=== PATIENT | female | born 1960 | race Caucasian/White ===

== ENCOUNTER 2022-03-23 09:25 | Emergency (ER) | payer BC, OTHER ==
[2022-03-23 13:22] LABS: Absolute Lymphocytes (CBC) 2.5 K/uL (0.7-4.9); Hematocrit 40.4 % (36.0-45.0); Lymphocytes % 26.9 % (15.3-44.8); MCV 85.3 fL (80-100); MPV 7.4 fL (7.6-11.3); RBC Red Blood Cell Count 4.74 M/uL (3.86-4.86)
[2022-03-23 13:37] LABS: Albumin 3.1 g/dL (3.4-5.0); Bilirubin Total 0.6 mg/dL (0.2-1.0); Potassium 3.3 mmol/L (3.5-5.1)
--- NOTE | 2022-03-23 13:45 | EDPHYS ---
Physician Documentation [facility] Name: Tarsha Ponce Age: 61 yrs Sex: Female : 1960 Arrival Date: 03/23/2022 Time: 09:42 Bed 30 Private MD: ED Physician Alberta Bernard HPI: 03/23 09:58 This 61 yrs old Female presents to ER via Ambulatory with complaints of High Blood jmm Sugar, Vomiting. 09:58 This is a 61-year-old female with a history of factor V, hypertension, hypothyroidism, jmm the presents emerged department with elevated glucose levels. Patient states she was recently diagnosed with diabetes mellitus. Patient had told her PCP that she will occasionally vomit in the mornings which she states is normal for her. Also states having some shortness of breath which she also states is normal for her. But due to the new diagnosis was concerned the patient may be having a diabetic emergency. Patient denies chest pain vomiting or shortness of breath currently. Historical: - Allergies: 09:45 Percodan; ll1 - Home Meds: 14:16 amlodipine 10 mg tab 1 tab once daily [Active]; Folic Acid Oral [Active]; levothyroxine eh3 100 mcg tab 1 tab once daily [Active]; Xarelto 20 mg Oral tab 1 tab once daily [Active]; Zoloft 100 mg Oral tab 1 tab once daily [Active]; - PMHx: 09:45 DVT; factor V blood disorder; Hypertension; Hypothyroidism; Hypercholesterolemia; ll1 Diabetes mellitus; Pancreatitis; - PSHx: 09:45 tubes tied, partial hyst; Cholecystectomy; ll1 - Immunization history:: Client reports receiving the 1st dose of the Covid vaccine. - Social history:: Smoking status: Patient/guardian denies using tobacco, the patient reports quitting approximately 7 years ago. ROS: 09:58 Constitutional: Negative for fever, chills, and weight loss, Cardiovascular: Negative jmm for chest pain, palpitations, and edema, Respiratory: Negative for shortness of breath, cough, wheezing, and pleuritic chest pain. 09:58 All other systems are negative. Exam: 09:58 Constitutional: This is a well developed, well nourished patient who is awake, alert, jmm and in no acute distress. Head/Face: atraumatic. Eyes: EOMI, no conjunctival erythema appreciated ENT: Moist Mucus Membranes Neck: Trachea midline, Supple Chest/axilla: Normal chest wall appearance and motion. Cardiovascular: Regular rate and rhythm. No edema appreciated Respiratory: Normal respirations, no respiratory distress appreciated Abdomen/GI: Non distended Back: Normal ROM Skin: General appearance color normal MS/ Extremity: Moves all extremities, no obvious deformities appreciated, no edema noted to the lower extremities Neuro: Awake and alert Psych: Behavior is normal, Mood is normal, Patient is cooperative and pleasant Vital Signs: 09:43 BP 126 / 82; Pulse 80; Resp 17; Temp 97.6; Pulse Ox 98% ; Weight 81.65 kg; Height 5 ft. ll1 1 in. (154.94 cm); Pain 0/10; 13:04 BP 142 / 93; Pulse 75; Resp 18; Pulse Ox 100% on R/A; eh3 14:00 BP 129 / 90; Pulse 74; Resp 18; Pulse Ox 99% on R/A; eh3 09:43 Body Mass Index 34.01 (81.65 kg, 154.94 cm) 1 MDM: 10:33 Patient medically screened. [facility] 13:42 Data reviewed: vital signs, nurses notes. Counseling: I had a detailed discussion with akira the patient and/or guardian regarding: the historical points, exam findings, and any diagnostic results supporting the discharge/admit diagnosis, the need for outpatient follow up, to return to the emergency department if symptoms worsen or persist or if there are any questions or concerns that arise at home. 13:42 ED course: Patient's labs are unremarkable. Except for glucose. I do not currently [facility] suspect DKA. Patient vies follow-up PCP and otherwise given strict return precautions. Patient understood agrees to plan of care. 03/23 09:55 Order name: Glucose, Ancillary Testing; Complete Time: 10:07 EDMS 03/23 10:08 Order name: CBC with Diff; Complete Time: 13:26 [facility] 03/23 09:58 Order name: Finger Stick; Complete Time: 09:58 ll1 03/23 10:08 Order name: CMP; Complete Time: 13:39 [facility] 03/23 10:08 Order name: Lipase; Complete Time: 13:39 [facility] 03/23 10:08 Order name: IV Saline Lock; Complete Time: 10:16 [facility] 03/23 10:08 Order name: Labs collected and sent; Complete Time: 10:16 doretha Administered Medications: No medications were administered Disposition Summary: 03/23/22 13:44 Discharge Ordered Location: Home [facility] Condition: Stable jm Diagnosis - Hyperglycemia, unspecified jm Followup: [facility] - With: Private Physician - When: 2 - 3 days - Reason: Recheck today's complaints, Continuance of care, Re-evaluation by your physician Discharge Instructions: - Discharge Summary Sheet [facility] - Hyperglycemia [facility] Forms: - Medication Reconciliation Form [facility] - Thank You Letter [facility] - Antibiotic Education [facility] - Prescription Opioid Use [facility] Signatures: Dispatcher [employer] Eloy Hudson PA PA jmm Lewis, Lynsay, RN RN ll1 Miriam Tafoya RN RN eh3
--- NOTE | 2022-03-23 13:45 | ER ---
Nurse's Notes [facility] Name: Tarsha Ponce Age: 61 yrs Sex: Female : 1960 Arrival Date: 03/23/2022 Time: 09:42 Bed 30 Private MD: Diagnosis: Hyperglycemia, unspecified Presentation: 03/23 09:43 Chief complaint: Patient states: N/V for months. Found out she was diabetic Monday. ll1 Sugars have been in the 300's since Monday. No fever or diarrhea. Coronavirus screen: Vaccine status: Patient reports receiving the 1st dose of the Covid vaccine. Client denies travel out of the [place] in the last 14 days. nausea, vomiting. Client presents with at least one sign or symptom that may indicate coronavirus-19. Standard/surgical mask placed on the client. Ebola Screen: Patient denies travel to an Ebola-affected area in the 21 days before illness onset. Initial Sepsis Screen: Does the patient meet any 2 criteria? No. Patient's initial sepsis screen is negative. Does the patient have a suspected source of infection? No. Patient's initial sepsis screen is negative. Risk Assessment: Do you want to hurt yourself or someone else? Patient reports no desire to harm self or others. Onset of symptoms was March 21, 2022. 09:43 Method Of Arrival: Ambulatory ll1 09:43 Acuity: CATARINO 3 ll1 Triage Assessment: 09:46 General: Appears in no apparent distress. Behavior is cooperative, appropriate for age. ll1 Pain: Denies pain. GI: Reports nausea, vomiting. Historical: - Allergies: 09:45 Percodan; ll1 - Home Meds: 14:16 amlodipine 10 mg tab 1 tab once daily [Active]; Folic Acid Oral [Active]; levothyroxine eh3 100 mcg tab 1 tab once daily [Active]; Xarelto 20 mg Oral tab 1 tab once daily [Active]; Zoloft 100 mg Oral tab 1 tab once daily [Active]; - PMHx: 09:45 DVT; factor V blood disorder; Hypertension; Hypothyroidism; Hypercholesterolemia; ll1 Diabetes mellitus; Pancreatitis; - PSHx: 09:45 tubes tied, partial hyst; Cholecystectomy; ll1 - Immunization history:: Client reports receiving the 1st dose of the Covid vaccine. - Social history:: Smoking status: Patient/guardian denies using tobacco, the patient reports quitting approximately 7 years ago. Screenin:49 Abuse screen: Denies threats or abuse. Denies injuries from another. Nutritional eh3 screening: No deficits noted. Tuberculosis screening: No symptoms or risk factors identified. Fall Risk None identified. Assessment: 12:49 General: Appears in no apparent distress. uncomfortable, Behavior is calm, cooperative, eh3 appropriate for age. Pain: Denies pain. Neuro: Level of Consciousness is awake, alert, obeys commands, Oriented to person, place, time, situation. Cardiovascular: Capillary refill < 3 seconds Patient's skin is warm and dry. Respiratory: Airway is patent Respiratory effort is even, unlabored, Respiratory pattern is regular, symmetrical. GI: Abdomen is round non-distended, Reports nausea, vomiting. : No signs and/or symptoms were reported regarding the genitourinary system. EENT: No signs and/or symptoms were reported regarding the EENT system. Derm: No signs and/or symptoms reported regarding the dermatologic system. Musculoskeletal: No signs and/or symptoms reported regarding the musculoskeletal system. 13:45 Reassessment: Patient and/or family updated on plan of care and expected duration. Pain eh3 level reassessed. Patient is alert, oriented x 3, equal unlabored respirations, skin warm/dry/pink. Vital Signs: 09:43 BP 126 / 82; Pulse 80; Resp 17; Temp 97.6; Pulse Ox 98% ; Weight 81.65 kg; Height 5 ft. ll1 1 in. (154.94 cm); Pain 0/10; 13:04 BP 142 / 93; Pulse 75; Resp 18; Pulse Ox 100% on R/A; eh3 14:00 BP 129 / 90; Pulse 74; Resp 18; Pulse Ox 99% on R/A; eh3 09:43 Body Mass Index 34.01 (81.65 kg, 154.94 cm) 1 ED Course: 09:42 Patient arrived in ED. as 09:45 Triage completed. 1 09:45 [facility]legas [facility] 09:45 Alberta Bernard MD is Attending Physician. [facility] 09:46 Arm band placed on. 1 12:49 Patient has correct armband on for positive identification. Bed in low position. Call eh3 light in reach. Side rails up X2. Adult w/ patient. Pulse ox on. NIBP on. Door closed. Noise minimized. 12:52 Miriam Tafoya, RN is Primary Nurse. 3 13:11 Inserted saline lock: 20 gauge in right antecubital area, using aseptic technique. 3 Blood collected. 14:16 No provider procedures requiring assistance completed. IV discontinued, intact, eh3 bleeding controlled, No redness/swelling at site. Pressure dressing applied. Administered Medications: No medications were administered Medication: 14:16 VIS not applicable for this client. 3 Outcome: 13:44 Discharge ordered by . akira 14:16 Discharged to home ambulatory, with family. 3 14:16 Condition: stable 14:16 Discharge instructions given to patient, Instructed on discharge instructions, follow up and referral plans. Demonstrated understanding of instructions, follow-up care. 14:16 Patient left the ED. 3 Signatures: Eloy Villegas PA PA jmm Martinez, Amelia as Lewis, Lynsay, RN RN [facility] Miriam Tafoya, RN RN 3
[2022-03-23 14:37] VITALS: TEMP 97.6
[2022-03-23 14:40] VITALS: BP 129/90; O2SAT 99
== END 2022-03-23 14:16 | disposition home or self-care (01) ==
LOC: ER 09:25
DX: E11.65 Type 2 diabetes mellitus with hyperglycemia (principal); Z88.5 Allergy status to narcotic agent
CPT/HCPCS: 36415; 80053; 82947; 83690; 85025; 99283

== ENCOUNTER 2022-04-01 08:40 | Emergency (ER) | payer BC ==
[2022-04-01] MEDS ORDERED: ATROPINE SULFATE 1 MG/ML INJ IV ONE (08:41)
[2022-04-01] MEDS ORDERED: AMIODARONE HCL 150 MG/3 ML INJ IV ONE (08:41)
[2022-04-01] MEDS ORDERED: EPINEPHrine 1 MG/10 ML SYR IV ONE (08:41)
--- OUTSIDE RECORDS SUMMARY | 2022-04-01 08:44 | XMS REPORT | Continuity of Care Document ---
:1960 Author Organization [facility] t Address [address] [place] [address] Care Team Providers Name Role Phone WAGNER MOORE Primary Care Physician Unavailable Lambert Alberto Attending Clinician Unavailable Lauro Buck MD Attending Clinician Marleny Aguillon MA Attending Clinician Unavailable Kai Taylor MD Attending Clinician Angelita WALLER, Nikole Attending Clinician CRISTIANA PARRY Attending Clinician Unavailable Cristiana Parry MD Attending Clinician Pob, [facility] Main Attending Clinician Unavailable Doctor Unassigned, [place] Attending Clinician Unavailable UNDEFINED Admitting Clinician Unavailable LAURO BUCK Admitting Clinician Unavailable CRISTIANA PARRY Admitting Clinician Unavailable Payers Payer Name Policy Type Policy Number Effective Date Expiration Date S ailynchris [facility] [place] [facility] - [id number] 2020 00:00:00 OUT OF STATE Problems Condition Condition Condition Status Onset Resolution Last Treating Co mments Source Name Details Category Date Date Treatment Clinician Date 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 05-11 00:00: Hospita 00 l History of History of Disease Active 2022-1 M ethodi cholecyste cholecyste 0-11 st ctomy ctomy 00:00: Hospita 00 l Acute Acute Disease Active 2021-04 Methodi recurrent recurrent 0-11 st pancreatit pancreatit 00:00: Ho spita is is 00 l Elevated Elevated Disease Active 2021-04 Metho di lipase lipase 0-11 st 00:00: Hospita 00 l Upper Upper Disease Active 2021-04 Methodi abdominal abdominal 0-11 st pain pain 00:00: Hospita 00 l Current Current Disease Active 2021-04 Methodi use of use of 0-11 st shelter shelter 00:00: Hosp therese anticoagul anticoagul 00 l ation ation Factor V Factor V Disease Active 2021-04 Metho di Leiden Leiden 0-11 st 00:00: Hospita 00 l Allergies, Adverse Reactions, Alerts Allergy Allergy Status Severity Reaction(s) Onset Inactive Treating Comm ents Source Name Type Date Date Clinician Oxycodon Propensi Active Itching 2021-04 Metho di e-Aspiri ty to 0-27 st n adverse 00:00: Hospita reaction 00 l s to drug Adhesive Propensi Active Other (See 2021-04 Don't Me thodi Tape-Cortney ty to Comments) 0-[address] icones adverse 00:00: Hospita reaction 00 l s to drug oxycodon DA Active MO 2020-0 [facility] [place] [facility]osp[facility] l aspirin DA Active MO 2020-0 [facility] 9-29 [place] 00:00: [facility] 00 dic Hospita l oxycodon DA Active MO ITCHING 2020-0 [facility] 9- [place] 00:00: [facility] 00 dic Hospita l aspirin DA Active MO ITCHING 2020-0 [facility] 9-29 [place] 00:00: Orthope 00 dic Hospita l oxycodon DA Active MO 2020-0 [facility] 9-10 [place] 00:00: [facility] 00 dic Hospita l aspirin DA Active MO 2020-0 [facility] 9-10 [place] 00:00: Orthope 00 dic Hospita l oxycodon DA Active MO ITCHING 2020-0 [facility] e 9-10 [place] 00:00: Orthope 00 dic Hospita l aspirin DA Active MO ITCHING 2020-0 [facility] 9-10 [place] 00:00: Orthope 00 dic Hospita l oxycodon DA Active U 2009-0 [facility] e HCl 7-03 [place] 00:00: Orthope 00 dic Hospita l Oxycodon DA Active U [facility] e 10-24 [place] [facility] 00:00: Orthope alate 00 dic Hospita l aspirin DA Active U [facility] 10-24 [place] 00:00: Orthope 00 dic Hospita l NO KNOWN Drug Active [facility] [place] [facility] Social History Social Habit Start Date Stop Date Quantity Comments Source Alcohol intake 2022-03-11 2022-03-11 Ex-drinker [facility] 00:00:00 00:00:00 (finding) Tobacco use and 2022-02-01 2022-02-01 Smokeless tobacco [facility] exposure 00:00:00 00:00:00 non-user Exposure to 2021-12-20 2021-12-30 Not sure University SARS-CoV-2 00:00:00 11:04:00 [place] [facility]event[facility] Sex Assigned At [birth year] [facility] 00:00:00 00:00:00 Smoking Status Start Date Stop Date Source Tobacco [facility] Never [facility] tobacco [facility] Medications Ordered Filled Start Stop Current Ordering Indication Dosage Frequency Signature Comments Components Source Medication Medication Date Date Medication? Clinician (SIG) Name Name rivaroxaban 2021-04 Yes 20mg QD Take 1 Meth thang (XARELTO) 1-18 tablet (20 st 20 mg 10:55: mg total) Hospita tablet 32 by mouth l daily. ezetimibe 2021-04 Yes 10mg QD Take 1 Method i (ZETIA) 10 1-18 tablet (10 st mg tablet 10:55: mg total) [facility] 32 by mouth l daily. losartan-hy 2021-04 Yes 1{tbl} QD Take 1 Me thodi drochloroth 1-[address] iazide 10:55: mouth Hospita (HYZAAR) 32 daily. l 100-12.5 mg per tablet levothyroxi 2021-04 Yes 112ug QD Take 1 Met hodi ne 1-[address] (SYNTHROID) 10:55: (112 mcg Ho spita 112 mcg 32 total) by l tablet mouth daily. sertraline 2021-04 Yes 50mg QD Take 1 Metho di (ZOLOFT) 50 1-18 tablet (50 st MG tablet 10:55: mg total) [facility] 32 by mouth l daily. vit B comp 2021-04 Yes 1{tbl} QD Take 1 Met hodi no.3-folic- 1-[address] C-biotin 10:55: mouth Hospita (NEPHRO-VIT 32 daily. l E RX) 1-60-300 mg-mg-mcg tablet folic acid 2021-04 Yes 1mg QD Take 1 Metho di (FOLVITE) 1 1-18 tablet (1 st MG tablet 10:55: mg total) [facility] 32 by mouth l daily. multivitami 2021-04 Yes 15mL QD Take 15 mL Methodi ns & 1-[address] minerals-fe 10:55: daily. Hosp therese rrous 32 l gluconate 9 mg iron/15 mL liquid iopamidol 2021- No [id number] 60mL 60 mL, Univers (ISOVUE 12-30 Intravenou ity o f 370-500 mL) 16:31: 16:29 s, ONCE, 1 [place] injection 00 :00 dose, On Medica l 60 mL Leydi 12/30/21 Branch at 1145, Routine Vital Signs Vital Name Observation Time Observation Value Comments Source Body height 2022-03-28 20:15:00 154.9 cm [facility] Body weight 2022-03-28 20:15:00 81.647 kg [facility] BMI 2022-03-28 20:15:00 34.01 kg/m2 [facility] Systolic blood 2022-02-17 20:34:00 117 mm[Hg] Method ist Hospital pressure Diastolic blood 2022-02-17 20:34:00 71 mm[facility]Hg[facility] Heart rate 2022-02-17 20:34:00 70 /min [facility] Respiratory rate 2022-02-17 20:34:00 22 /min [facility] Oxygen saturation in 2022-02-17 20:34:00 98 /min [facility] Arterial blood by Pulse oximetry Body temperature 2022-02-17 20:03:00 36.56 Amber [facility] Procedures Procedure Date / Time Performing Source Performed Clinician MRI ABDOMEN W WO CONTRAST 2022-03-28 Lauro Buck Method ist 21:10:00 [facility] SURGICAL PATHOLOGY REQUEST 2022-02-17 Lauro Bucko dist 20:49:00 Hospital [place] > 1 HOUR 2022-02-17 Lauro Buck 20:35:00 [facility] UPPER GI TRACT, ENDOSCOPIC 2022-02-17 Lauro Buck Me thodist 19:21:00 [facility] ESOPHAGOGASTRODUODENOSCOPY (EGD) 2022-02-17 Lauro Buck 19:21:00 Hospital COVID-19 QUALITATIVE RT-PCR 2022-02-15 Lauro Buck odist 16:02:00 [facility] NOTICE OF PRIVACY PRACTICES 2021-12-30 Doctor [facility] of 16:04:36 Unassigned, No [facility] Name [place] CONSENT/REFUSAL FOR DIAGNOSIS AND 2021-12-30 Doctor [facility] TREATMENT 16:03:12 Unassigned, No [facility] ASSIGNMENT OF BENEFITS 2021-12-[address] [facility] of 16:02:49 Unassigned, No [facility] PHYSICIAN ORDERS 2021-12-14 Doctor [place] of 05:01:00 Unassigned, No [facility] Plan of Care Planned Activity Planned Date Details Comments Source Future Scheduled 2022-04-01 HEPATITIS B VACCINES Met [facility] Test 06:58:54 (1 of 3 - 3-dose series) [code = HEPATITIS B VACCINES (1 of 3 - 3-dose series)] Future Scheduled 2022-04-01 Hepatitis C screening [facility] Test 06:58:54 (procedure) [code = 890555628] Future Scheduled 2022-04-01 Screening for [facility] Test 06:58:54 malignant neoplasm of cervix (procedure) [code = 219737892] Future Scheduled 2022-04-01 BREAST CANCER [facility] Test 06:58:54 SCREENING [code = BREAST CANCER SCREENING] Future Scheduled 2022-04-01 COLONOSCOPY SCREENING [facility] Test 06:58:54 [code = COLONOSCOPY SCREENING] Future Scheduled 2022-04-01 SHINGLES VACCINES (1 Met [facility] Test 06:58:54 of 2) [code = SHINGLES VACCINES (1 of 2)] Future Scheduled 2022-04-01 COVID-19 VACCINE (2 - [facility] Test 06:58:54 Booster for Alexander series) [code = COVID-19 VACCINE (2 - Booster for Alexander series)] Future Scheduled 2022-04-01 INFLUENZA VACCINE [facility] Test 06:58:54 [code = INFLUENZA VACCINE] Encounters Start End Encounter Admission Attending Care Care Encounter Source Date/Time Date/Time Type Type Clinicians Facility Department ID 2020-01-21 Inpatient GOOD Norris [id number] [facility] 14:00:00 Lambert [facility] [place] [facility] l 2022-03-31 2022-03-31 Telephone Lauro Buck 1.2.840.1 [id number] Methodi 00:00:00 00:00:[address] 3.430.2.7 Hospit a .3.748962 l .8 2022-03-31 2022-03-31 Telephone Lauro Buck 1.2.840.1 [id number] 21 [id number] Methodi 00:00:00 00:00:[address] 3.430.2.7 Hospit a .3.999588 l .8 2022-03-30 2022-03-30 Telephone Lauro Buck 1.2.840.1 [id number] 21 [id number] Methodi 00:00:00 00:00:[address] 3.430.2.7 Hospit a .3.478707 l .8 2022-03-28 2022-03-28 Outpatient LAURO BUCK [facility] [id number] [place] 00:00:00 00:00:[address] 2022-03-11 2022-03-11 Telemedici Lauro Buck 1.2.840.1 [id number] Methodi 10:45:00 11:09:[address] 3.430.2.7 Hospit a .3.836517 l .8 2022-03-11 2022-03-11 Outpatient LAURO BUCK [facility] [id number] [place] 00:00:00 00:00:[address] 2022-03-11 2022-03-11 Telephone Pal 1.2.840.1 [id number] [id number] Methodi 00:00:00 00:00:[address] 3.430.2.7 Hospit a .3.142047 l .8 2022-02-18 2022-02-18 Telephone Pal 1.2.840.1 [id number] [id number] Methodi 00:00:00 00:00:[address] 3.430.2.7 Hospit a .3.092371 l .8 2022-02-17 2022-02-17 Hospital [facility] Lauro 1.2.840.1 [id number] Methodi 14:00:00 23:59:[address] 3.430.2.7 Hospit a .3.172052 l .8 2022-02-17 2022-02-17 Hospital [facility] 1.2.840.1 [id number] Methodi 12:42:00 23:59:[address] 3.430.2.7 Hospit a .3.264141 l .8 2022-02-17 2022-02-17 Surgery [facility] 1.2.840.1 [id number] 2100 [id number] Methodi 14:00:00 15:30:[address] 3.430.2.7 Hospit a .3.266767 l .8 2022-02-17 2022-02-17 Anesthesia Kai Taylor 1.2.840.1 1 [id number] Methodi 14:21:00 15:07:00 Event Nikole Goldstein 77679.1.[address] 3.430.2.7 Hospit a .3.848743 l .8 2022-02-17 2022-02-17 Travel 1.2.840.1 1.2.059.394 [id number] Methodi 00:00:00 00:00:[address] 3.430.2.7 0.2.7.3.698 Ho spita .3.530660 084.8 l .8 2022-02-17 2022-02-17 Outpatient LAURO BUCK [facility] 021 [id number] [place] 00:00:00 00:00:[address] 2022-02-17 2022-02-17 Outpatient HEBER LAURO [facility] [id number] [place] 00:00:00 00:00:[address] 2022-02-15 2022-02-15 Lab Lauro Buck 1.2.840.1 [id number] [id number] Methodi 10:35:00 10:40:[address] 3.430.2.7 Hospit a .3.448490 l .8 2022-02-15 2022-02-15 Travel 1.2.840.1 1.2.517.767 1219 [id number] Methodi 00:00:00 00:00:[address] 3.430.2.7 0.2.7.3.698 Ho spita .3.370205 084.8 l .8 2022-02-15 2022-02-15 Outpatient HEBER LAURO [facility] [id number] [place] 00:00:00 00:00:[address] 2022-02-08 2022-02-08 Orders Pal, 1.2.840.1 [id number] 9134 Methodi 00:00:00 00:00:00 Only Marleny 73568.1.[address] 3.430.2.7 Hospit a .3.368895 l .8 2022-02-03 2022-02-03 Telephone Lauro Buck 1.2.840.1 [id number] 21 [id number] Methodi 00:00:00 00:00:[address] 3.430.2.7 Hospit a .3.311262 l .8 2022-02-02 2022-02-02 Telephone Lauro Buck 1.2.840.1 [id number] 21 [id number] Methodi 00:00:00 00:00:[address] 3.430.2.7 Hospit a .3.175732 l .8 2022-02-01 2022-02-01 Telemedici Lauro Buck 1.2.840.1 [id number] 2 [id number] Methodi 09:00:00 09:45:[address] 3.430.2.7 Hospit a .3.240144 l .8 2022-02-01 2022-02-01 Telephone Aguillon, 1.2.840.1 [id number] 2100 [id number] Methodi 00:00:00 00:00:[address] 3.430.2.7 Hospit a .3.745646 l .8 2022-02-01 2022-02-01 Outpatient LAURO BUCK [facility] [id number] [place] 00:00:00 00:00:[address] 2021-12-30 2021-12-30 Outpatient R [facility] [id number] Univers 11:11:02 23:59:00 CRISTIANA Thibodeaux [facility] 2021-12-30 2021-12-30 [facility] 1.2.840.114 [id number] Univers 11:00:00 23:59:00 Encounter Cristiana thibodeaux 350.1.13.10 [facility] [place].2.[place] [id number] [place] [address] Branch 2021-12-14 2021-12-14 Flight Deck Officer Ochoa Adamson Lab Main [facility] 1.2.8 40.114 [id number] Univers 12:30:00 12:45:00 Visit Cristiana Parry 350.1.1 3.10 [facility] [place] [facility] [phone] [address] 2021-12-14 2021-12-14 Outpatient R [facility] [id number] Univers 12:30:00 12:30:00 CRISTIANA Thibodeaux [facility] 2021-12-14 2021-12-14 Orders Doctor IMELDA 1.2.840.114 [id number] Univers 00:00:00 00:00:00 Only Unassigned, ALEJANDRO 350.1.13.10 ity of [place] [facility] 4.2.7.2.686 Radames as [id number] [place] [address] Branch 2020-01-02 2020-01-02 Outpatient GOOD Alberto [id number] [id number] [facility] 12:00:00 12:00:[address] [facility] Results Test Description Test Time Test Comments Results Result Comments Source Surgical pathology request 2022-02-20 20:45:36 Test Item Value Reference Range Interpretation Comme nts Case number (test code = 2807152) [id number] Surgical pathology report (test code = See link below for PDF Lab R eport 2259) Result status (test code = 6490950) This is Final Report for [id number] 4252-2 [facility] [id number] 20:16:03 Test Item Value Reference Interpretation Comments Range Interpretation Negative results do (test code = not preclude COVID-19 5226075) infection and should not be used asthe sole basis for treatment or other patient management decisions. Negativeresults must be combined with clinical observations, patient history, andepidemiological information. COVID-19 Not-Detected Not-Detected DISCLAIMER:This qualitative RT-PCR test was result (test code performed using = 14721-5) the Elpid[employer] m SARS-CoV-2 Assa y ([employer]). This assay is available for i n vitro diagnosti c use under Food and Drug Administration (FDA) Emergency Use Authorizati on (EUA) and has been verified f or clinical use by the [facility]. Information on the FDA policy for diagnostic tests for coronavirus disease- 2019 i s available at:https://www. fd a.gov/medical-d ev ices/emergency- si tuations-medica l- devices/faqs-di ag nostic-testing- sa rs-cov-2It is critical that health care providers and patients review the applicable fact sheet(s) i n interpreting or understanding t he test results th at are available upon request.JERMAINO PEBBLES GY:This assay utilizes oziel ts for nucleic aci d extraction, amplification, and real-time reverse page makeup system operator polymerase sanya n reaction. COVID-19 See link below for PDF Case Number: qualitative RT-PCR Lab Report [id number] (test code = 7070) Rehan TaiARS-CoV-2 (COVID-19) RNA [Presence] in Respiratory specimen by VINCENT with probe [id number] 15:16:03 Test Item Value Reference Range Interpretation Comments SARS-CoV-2 (COVID-19) RNA Not detected [Presence] in Respiratory specimen by VINCENT with probe detection (test code = 82963-7) Whether patient is employed in a Unknown healthcare setting (test code = 12151-5) Whether the patient has symptoms Unknown related to condition of interest (test code = 13748-9) Whether the patient was Unknown hospitalized for condition of interest (test code = 07895-1) Whether the patient was admitted Unknown to intensive care unit (ICU) for condition of interest (test code = 31063-8) Whether patient resides in a Unknown congregate care setting (test code = 29836-2) status (test code = Unknown 58340-9) Date and time of symptom onset Unknown (test code = 00908-0) [facility] [place]- XR FLUORO [id number] 16:36:00 Patient Name: JIMMY DUMONT Unit No: [id number] EXAMS: CPT CODE: [id number] XR FLUORO NDL 57794 FLUOROSCOPICALLY GUIDED INJECTION OF THE LEFT POSTERIOR SUBTALAR JOINT WITH STEROID AND LIDOCAINE COMMENT: COMPARISON: No prior exams available. After informed consent was obtained a needle was placed in the subtalar joint with fluoroscopic guidance. Its position was confirmed by injecting Isovue 300 and ob taining a lateral radiograph. 0.2 minutes of fluoroscopy time was utilized. Subsequently 2mL of Kenalog 40 mg per cc and 1mL of 1 percent lidocaine was injected. No immediate complications were encountered. at 1636 Reported and signed by: Louis Cameron MD CC: Lambert Alberto MD Technologist: Leann Henry RT.(R) Transcribed D/ (1427) [email or web address].JCL [facility] NAME: JIMMY DUMONT [address] [facility] PHYS: Lambert Cadet MD : 1960 AGE: 59 SEX: F [place] [address] LOC: Y.RAD PHONE #: [phone] EXAM DATE: 01/21/2020 STATUS: REG CLI FAX #: [phone] RAD #: [id number] D/C DT PAGE 1 Signed Report Patient Name: JIMMY DUMONT Unit No: [id number] EXAMS: CPT CODE:[id number] XR FLUORO NDL 08622 (Continued) Orig Print D/T: S: 01/21/2020 (1640) [facility] NAME: JIMMY DUMONT [address] [facility] PHYS: Lambert Cadet MD : 1960 AGE: 59 SEX: F [place] [address] LOC: Y.RAD PHONE #: [phone] EXAM DATE: 01/21/2020 STATUS: REG CLI FAX #: [phone] RAD #: [id number] D/C DT PAGE 2 Signed Report
--- NOTE | 2022-04-01 09:08 | ER ---
Nurse's Notes [facility] Name: Tarsha Ponce Age: 61 yrs Sex: Female : 1960 Arrival Date: 04/01/2022 Time: 08:45 Bed 3 Private MD: Diagnosis: Cardiac arrest, cause unspecified Presentation: 04/01 08:34 Chief complaint: EMS states: patient was witnessed down by family and CPR was initiated ap3 by family members at 0805. EMS arrived and started ACLS. EMS initiated an IO in her left lower extremity, and administered 3 rounds of epi, placed an ET tube size 7.5 placed 22 at the teeth, EMS states that their BGL on scene was 311. 08:34 Method Of Arrival: EMS: [facility] ap3 08:34 Coronavirus screen: At this time, the client does not indicate any symptoms associated ap3 with coronavirus-19. Ebola Screen: No symptoms or risks identified at this time. Initial Sepsis Screen: Does the patient meet any 2 criteria?. Risk Assessment: Do you want to hurt yourself or someone else? Unable to obtain. Onset of symptoms was April 01, 2022 at 08:05. Care prior to arrival: Oral intubation, CPR manually via thumper performed by EMS and is still in progress Medication(s) given: EPI x's 3 Glucose check: 311 Oxygen administered. via AMBU bag. 08:34 Acuity: CATARINO 1 ap3 08:34 Compressions began at 08:05. ap3 08:35 Care prior to arrival:. ap3 09:34 Initial Sepsis Screen: Does the patient have a suspected source of infection? No. ap3 Patient's initial sepsis screen is negative. Triage Assessment: 08:34 General: Appears distressed, Behavior is unresponsive. Pain: Unable to use pain scale. ap3 Patient is intubated. Patient is unresponsive. Neuro: Level of Consciousness is unresponsive, Pupils are fixed. Cardiovascular: Rhythm is PEA. Respiratory: Airway via oral intubation. Historical: - Allergies: 08:52 Percodan; ss - PMHx: 08:52 diabetes mellitus; DVT; factor V blood disorder; Hypercholesterolemia; Hypertension; ss Hypothyroidism; Pancreatitis; - PSHx: 08:52 Cholecystectomy; tubes tied, partial hyst; ss - Immunization history:: unknown. - Social history:: Smoking status: unknown. Screenin:57 Abuse screen: Denies threats or abuse. Nutritional screening: No deficits noted. ap3 Tuberculosis screening: No symptoms or risk factors identified. Fall Risk No fall in past 12 months (0 pts). Secondary diagnosis (15 points) IV access (20 points). Ambulatory Aid- None/Bed Rest/Nurse Assist (0 pts). Gait- Normal/Bed Rest/Wheelchair (0 pts) Mental Status- Total Hale Fall Scale indicates No Risk (0-24 pts). Assessment: 08:35 CPR assessment: unresponsive, no respiratory effort, intubated, Ambu ventilation. ap3 Cardiac rhythm is PEA. General:. 08:41 Reassessment: pulse check: PEA CPR resumed. ap3 08:43 Reassessment: pulse check: PEA CPR resumed. ap3 08:45 Reassessment: pulse check: PEA CPR resumed. ap3 08:47 Reassessment: pulse check: Shockable rhythm. Charged defibrillator. patient cleared. ap3 patient charged. CPR resumed. 08:49 Reassessment: pulse check: PEA CPR resumed. ap3 08:50 Reassessment: BGL 227. ap3 08:52 Reassessment: pulse check: Shockable rhythm. Charged defibrillator. patient cleared. ap3 patient charged. CPR resumed. 08:55 Reassessment: pulse check: Shockable rhythm. Charged defibrillator. patient cleared. ap3 patient charged. CPR resumed. 08:57 Reassessment: pulse check: Shockable rhythm. Charged defibrillator. patient cleared. ap3 patient charged. CPR resumed. 08:59 Reassessment: pulse check: Shockable rhythm. Charged defibrillator. patient cleared. ap3 patient charged. CPR resumed. 09:01 Reassessment: pulse check PEA. Time of called by Tyler at this time. ap3 Vital Signs: 08:34 BP 93 / 70; Temp 97.9(A); ap3 ED Course: 08:35 Inserted saline lock: 20 gauge in right antecubital area, using aseptic technique. ap3 08:45 Patient arrived in ED. eb 08:45 Arm band placed on right wrist. ap3 08:45 Patient has correct armband on for positive identification. ap3 09:02 Christian Scott MD is Attending Physician. rt 09:05 No provider procedures requiring assistance completed. ap3 09:07 Christian Scott MD is Pronouncing Provider. rt 09:15 Mechelle Veloz RN is Primary Nurse. ap3 09:43 Triage completed. ap3 Administered Medications: 08:30 Drug: Calcium Chloride 10% 10 ml Route: IVP; Site: right antecubital; ap3 10:26 Follow up: Response: No adverse reaction ap3 08:37 Drug: Atropine 1 mg Route: IVP; Site: right antecubital; ap3 10:26 Follow up: Response: No adverse reaction ap3 08:38 Drug: Sodium Bicarbonate 1 amp Route: IVP; Site: right antecubital; ap3 10:26 Follow up: Response: No adverse reaction ap3 08:41 Drug: EPINEPHrine 0.1mg/mL 1:10,000 1 mg Route: IVP; Site: right antecubital; ap3 10:26 Follow up: Response: No adverse reaction ap3 08:45 Drug: Sodium Bicarbonate 1 amp Route: IVP; Site: right antecubital; ap3 10:26 Follow up: Response: No adverse reaction ap3 08:50 Drug: EPINEPHrine 0.1mg/mL 1:10,000 1 mg Route: IVP; Site: right antecubital; ap3 10:26 Follow up: Response: No adverse reaction ap3 08:57 Drug: Sodium Bicarbonate 1 amp Route: IVP; Site: right antecubital; ap3 10:25 Follow up: Response: No adverse reaction ap3 08:58 Drug: amiodarone 150 mg Route: IVP; Site: right antecubital; ap3 10:25 Follow up: Response: No adverse reaction ap3 Medication: 09:58 VIS not applicable for this client. ap3 Outcome: 09:01 Outcome Patient ap3 09:01 Condition: 09:01 Patient : ap3 15:12 Patient left the ED. ld1 Signatures: Safia Bagley RN RN ss Mechelle Veloz RN RN ap3 Kenya Hogan Lauren, RN RN ld1 Christian Scott MD MD rt Corrections: (The following items were deleted from the chart) 09:55 08:41 Cardiac rhythm is PEA ap3 ap3 09:56 08:41 Cardiac rhythm is CPR resumed ap3 ap3 09:56 09:55 Cardiac rhythm is CPR resumed ap3 ap3 09:59 09:58 Reassessment: pulse check: PEA CPR resumed ap3 ap3 10:19 08:47 Reassessment: pulse check: Shockable rhythm. Charged defibrillator. patient ap3 cleared. patient charged. CPR resumed. ap3 10:20 10:19 Reassessment: BGL 227 ap3 ap3 10: 10:27 Patient : ap3 ap3
--- NOTE | 2022-04-01 15:13 | EDPHYS ---
Physician Documentation [facility] Name: Tarsha Ponce Age: 61 yrs Sex: Female : 1960 Arrival Date: 04/01/2022 Time: 08:45 Bed 3 Private MD: ED Physician Christian Scott HPI: 04/01 09:13 This 61 yrs old Female presents to ER via Unassigned with complaints of Cardiac Arrest. rt 09:16 Preceding the arrest, the patient collapsed. Pre-hospital course: The arrest was rt witnessed EMS care prior to arrival: initiation of ACLS, intubation. Unable to obtain HPI due to patient is on ventilator. Patient presents to the ED with cardiac arrest. Patient had a witnessed arrest, slow PEA. Multiple rounds of ACLS were given, she was not hypoglycemic. No further history could be obtained. Symptoms are severe in severity.. Historical: - Allergies: 08:52 Percodan; ss - PMHx: 08:52 diabetes mellitus; DVT; factor V blood disorder; Hypercholesterolemia; Hypertension; ss Hypothyroidism; Pancreatitis; - PSHx: 08:52 Cholecystectomy; tubes tied, partial hyst; ss - Immunization history:: unknown. - Social history:: Smoking status: unknown. ROS: 09:16 Unable to obtain ROS due to patient is on ventilator. rt Exam: 09:16 Neck: Trachea midline, no thyromegaly or masses palpated, and no cervical rt lymphadenopathy. Supple, full range of motion without nuchal rigidity, or vertebral point tenderness. No Meningismus. Chest/axilla: Normal chest wall appearance and motion. Nontender with no deformity. No lesions are appreciated. Abdomen/GI: Soft, non-tender, with normal bowel sounds. No distension or tympany. No guarding or rebound. No evidence of tenderness throughout. Skin: Warm, dry with normal turgor. Normal color with no rashes, no lesions, and no evidence of cellulitis. MS/ Extremity: Pulses equal, no cyanosis. Neurovascular intact. Full, normal range of motion. Psych: Awake, alert, with orientation to person, place and time. Behavior, mood, and affect are within normal limits. 09:16 Constitutional: The patient appears Responsive, intubated 09:16 Eyes: pupils midline, fixed, dilated. 09:16 ENT: ET tube in place. 09:16 Cardiovascular: Pulseless, no audible heart sounds. 09:16 Respiratory: Ventilated breath sounds bilaterally, equal, apneic. 09:16 Neuro: GCS 3 T, no spontaneous movements. 09:16 Psych: Not assessable. Vital Signs: 08:34 BP 93 / 70; Temp 97.9(A); ap3 Procedures: 09:16 CPR: See CPR flow sheet. Initial patient assessment: unresponsive, The presenting rt cardiac rhythm is PEA. the patient was intubated prior to arrival, Compressions: began Meds given: Atropine Epinephrine Amiodarone, Defibrillation: despite ED evaluation and treatment, the patient . CPR was stopped at 09:01. MDM: 09:02 Patient medically screened. rt 09:16 Differential diagnosis: arrythmia, cardiac arrest, respiratory arrest, overdose, PE, rt ACS. Data reviewed: vital signs, nurses notes, EMS record. ED course: Patient presents to the ED with cardiac arrest. Patient has had prolonged downtime prior to arrival with signs of severe anoxic brain injury upon arrival. Consideration was given to PE, however, TNKase not likely to benefit patient from a neurologic standpoint. ACLS medications were given patient's rhythm degraded to V. fib, multiple shocks were given, patient progressed to asystole,, given prolonged downtime, further resuscitative efforts were deemed to be futile as patient has essentially no chance of meaningful neurologic recovery. Time of was called, appropriate authorities were notified.. 12/09 09:03 Order name: Glucose, Ancillary Testing EDMS Administered Medications: 08:30 Drug: Calcium Chloride 10% 10 ml Route: IVP; Site: right antecubital; ap3 10:26 Follow up: Response: No adverse reaction ap3 08:37 Drug: Atropine 1 mg Route: IVP; Site: right antecubital; ap3 10:26 Follow up: Response: No adverse reaction ap3 08:38 Drug: Sodium Bicarbonate 1 amp Route: IVP; Site: right antecubital; ap3 10:26 Follow up: Response: No adverse reaction ap3 08:41 Drug: EPINEPHrine 0.1mg/mL 1:10,000 1 mg Route: IVP; Site: right antecubital; ap3 10:26 Follow up: Response: No adverse reaction ap3 08:45 Drug: Sodium Bicarbonate 1 amp Route: IVP; Site: right antecubital; ap3 10:26 Follow up: Response: No adverse reaction ap3 08:50 Drug: EPINEPHrine 0.1mg/mL 1:10,000 1 mg Route: IVP; Site: right antecubital; ap3 10:26 Follow up: Response: No adverse reaction ap3 08:57 Drug: Sodium Bicarbonate 1 amp Route: IVP; Site: right antecubital; ap3 10:25 Follow up: Response: No adverse reaction ap3 08:58 Drug: amiodarone 150 mg Route: IVP; Site: right antecubital; ap3 10:25 Follow up: Response: No adverse reaction ap3 Disposition: 09:16 Critical Care:. rt Disposition Summary: 04/01/22 09:07 Patient Location: Home rt Pronouncing Physician: Christian Scott rt Time of : 09:01 04/01/2022 rt Diagnosis - Cardiac arrest, cause unspecified rt Critical care time excluding procedures: 09:16 Critical care time: Bedside Care: 40 minutes. Total time: 40 minutes rt Signatures: Safia Bagley RN RN Mechelle Veloz RN RN ap3 Christian Scott MD MD rt
== END 2022-04-01 15:12 | disposition expired ==
LOC: ER 08:40
DX: I46.9 Cardiac arrest, cause unspecified (principal); I10 Essential (primary) hypertension; E11.9 Type 2 diabetes mellitus without complications; Z88.5 Allergy status to narcotic agent
CPT/HCPCS: 82947; 96375; 96374; 92950; 99285; J0461; J0282; J0171